=== PATIENT | female | born 1990 | race Caucasian/White ===

== ENCOUNTER → 2016-08-27 | Outpatient (CLI) | payer OTHER ==
[~2016-08-27] MED LIST: COLACE 100MG C100 MG PO; FERROUS SULFAT325 MG PO; NORCO 5-325 TA1 EACH PO; TYLENOL 500 MG500 MG PO
[2016-08-27 14:45] LABS: HEMOGLOBIN 10.1 gm/dl (12.3-15.3); RED BLOOD COUNT 4.17 M/UL (4.00-5.10); WHITE BLOOD COUNT 9.8 K/UL (4.5-11.0)
== END ==
LOC: GENOP 14:05
PROVIDERS: Obstetrics & Gynecology
DX: Z01.818 Encounter for other preprocedural examination (principal); O34.219 Maternal care for unspecified type scar from previous cesarean delivery; Z3A.39 39 weeks gestation of pregnancy
CPT/HCPCS: 36415; 81001; 85025

== ENCOUNTER 2016-08-31 09:15 | Inpatient (IN) | payer OTHER ==
[~2016-08-31] VITALS: Ht 160 cm; Wt 116.1 kg
[~2016-08-31 09:15] MED LIST changes: -FERROUS SULFAT325 MG PO; -NORCO 5-325 TA1 EACH PO; -TYLENOL 500 MG500 MG PO
[2016-09-01 04:28] LABS: HEMOGLOBIN 7.6 gm/dl (12.3-15.3)
[2016-09-02] MEDS ORDERED: FERROUS SULFAT325 MG PO (09:47)
[2016-09-02] MEDS ORDERED: TYLENOL 500 MG500 MG PO (09:48)
[2016-09-02] MEDS ORDERED: NORCO 5-325 TA1 EACH PO (09:49)
== END 2016-09-02 07:45 | disposition home or self-care (01) | DRG 766 ==
LOC: OB 10:33 → ZEROF 09-01 09:04 → OB 09-01 09:04
PROVIDERS: ADMIT Obstetrics & Gynecology
PROC: 10D00Z1 Extraction of Products of Conception, Low, Open Approach (ICD-10-PCS; principal; 2016-08-31 11:15)
DX: O34.211 Maternal care for low transverse scar from previous cesarean delivery (principal); Z3A.39 39 weeks gestation of pregnancy; Z37.0 Single live birth
CPT/HCPCS: 36415; 82800; 85014; 85018; 90715; C1713; C9113; J0690; J2274; J2405; J2590; J2765; J3010; J3430; J7120